=== PATIENT | female | born 1985 | race Caucasian/White ===

== ENCOUNTER → 2017-06-13 | Outpatient (CLI) | payer OTHER ==
[~2017-06-13] MED LIST: ISOVUE-370 76% 100ML VIAL (Q9967) As Ordered
== END ==
LOC: M RADPRO 11:29
DX: N97.9 Female infertility, unspecified (principal)
CPT/HCPCS: 58340

== ENCOUNTER → 2018-03-15 | Outpatient (CLI) | payer OTHER ==
--- NOTE | 2018-03-15 12:12 | REP ---
MRI LEFT KNEE: TECHNIQUE: Axial proton density fat saturation, sagittal proton density T2 STIR, water excitation, coronal proton density, proton density fat saturation. Menisci are intact with no evidence of any meniscal tear. The cruciate and collateral ligaments are intact. The extensor mechanism is intact. The medial and lateral patellar retinacula are intact. Cartilaginous surfaces are smooth with no osteochondral defect. There is no bone marrow edema or occult fracture. There is a small joint effusion. There is no popliteal cyst. IMPRESSION: Small joint effusion. Otherwise negative MRI left knee. Electronically Signed by Jose A Mccbae MD 03/15/2018 12:24 P
== END ==
LOC: M RAD 10:07
PROVIDERS: ATTEND Family Medicine
DX: M25.462 Effusion, left knee (principal); M25.562 Pain in left knee